=== PATIENT | male | born 1970 | race Caucasian/White ===

== ENCOUNTER 2018-03-09 08:55 | Outpatient (CLI) | payer OTHER ==
[2018-03-11] MEDS ORDERED: CLONAZEPAM0.25 MG PO (14:48)
[2018-03-11] MEDS ORDERED: WELLBUTRIN XL300 MG PO (14:49)
[2018-03-11] MEDS ORDERED: JANUMET XR 50-1 EAC1 PO (14:49)
[2018-03-11] MEDS ORDERED: COZAAR50 MG PO (14:49)
[2018-03-11] MEDS ORDERED: INVOKANA300 MG PO (14:51)
[2018-03-11] MEDS ORDERED: VITAMIN D2000 UNIT PO (14:52)
[2018-03-11] MEDS ORDERED: JANUMET XR 1001 EACH PO (14:52)
== END 2018-03-09 09:27 | disposition home or self-care (01) ==
LOC: EKG 08:55
DX: K43.9 Ventral hernia without obstruction or gangrene (principal); Z01.810 Encounter for preprocedural cardiovascular examination

== ENCOUNTER 2018-03-14 07:00 | Day surgery (SDC) | payer OTHER ==
[~2018-03-14 07:00] MED LIST: CLONAZEPAM0.25 MG PO; COZAAR50 MG PO; INVOKANA300 MG PO; JANUMET XR 1001 EACH PO; JANUMET XR 50-1 EAC1 PO; VITAMIN D2000 UNIT PO; WELLBUTRIN XL300 MG PO
[2018-03-14] MEDS ORDERED: AMOX1TAB5 PO (11:17)
[2018-03-14] MEDS ORDERED: ULTRACET PO (11:17)
== END 2018-03-14 12:34 | disposition home or self-care (01) ==
LOC: CIR.AMB 07:00
DX: K43.2 Incisional hernia without obstruction or gangrene (principal)